=== PATIENT | female | born 1990 | race Caucasian/White ===

== ENCOUNTER 2017-12-12 12:47 | Outpatient (CLI) | END 2017-12-12 15:25 | disposition home or self-care (01) ==

== ENCOUNTER 2017-12-29 11:49 | Outpatient (CLI) | END 2017-12-29 18:50 | disposition home or self-care (01) ==

== ENCOUNTER 2018-01-02 13:19 | Inpatient (IN) | END 2018-01-05 19:35 | disposition home or self-care (01) | DRG 788 ==